=== PATIENT | male | born 1940 | race Caucasian/White ===

== ENCOUNTER 2016-11-27 08:04 | Emergency (ER) | payer OTHER ==
[2016-11-27 08:27] VITALS: BP 132/065
--- NOTE | 2016-11-27 10:10 | PROVIDER DOCUMENTATION ---
HPI-General Adult - General Chief Complaint: Cold Symptoms Stated Complaint: SUTURE/STAPLE REMOVAL/COLD SX Time Seen by Provider: 11/27/16 09:56 Source: patient Allergies/Adverse Reactions: Patient Allergies Allergy/AdvReac Type Severity Reaction Status Date / Time No Known Allergies Allergy Verified 11/27/16 08:27 Home Medications: Hum Insulin NPH/Reg Insulin Hm [Humulin 70-30 Vial] 12/20/13 Amitriptyline [Elavil] 25 mg PO QHS 04/11/14 Amlodipine/Atorvastatin [Amlodipine-Atorvast 10-10 mg] 10 mg PO DAILY 04/11/14 Doxazosin [Cardura] 4 mg PO DAILY 04/11/14 Insulin Humulin 70/30 [Humulin 70/30] 30 units SQ QPM 04/11/14 Insulin Humulin 70/30 [Humulin 70/30] 40 units SQ QAM 04/11/14 Lisinopril/Hydrochlorothiazide [Lisinopril-Hctz 20-25 mg Tab] 1 tab PO DAILY Meloxicam 15 mg PO DAILY 04/11/14 SIMVAstatin [Zocor] 40 mg PO QHS 04/11/14 - History of Present Illness -Gen Adult Nature of Presenting Problems: Seen on 11/20/16 for overdose of insulin had head injury received 3 jose to left parietal pt reports to get them removed today and also complains of cough and sinus congestion x 2 days and wants a prescription for that. Denies n,v,f, blurry vision,headache. Location of Pain/Injury: reports: head Quality of Pain: reports: none Severity: reports: mild Onset/Duration: reports: other (7 days) Similar Symptoms Previously?: No Recently seen or treated by another doctor?: Yes Review of Systems - Adult - REVIEW OF SYSTEMS - ADULT Constitutional: denies: chills, fever, fatique Eyes: reports: no symptoms reported Ears, Nose, Mouth & Throat: reports: sinus problem. denies: ear pain, throat pain Cardiovascular: denies: chest pain, irregular heart rate, orthopnea, syncope Respiratory: reports: cough. denies: shortness of breath, wheezing Gastrointestinal: reports: no symptoms reported Genitourinary: reports: no symptoms reported Musculoskeletal: reports: no symptoms reported Integumentary: reports: no symptoms reported Neurological: reports: no symptoms reported Psychiatric: reports: no symptoms reported Endocrine: reports: no symptoms reported Hematologic/Lymphatic: reports: no symptoms reported Allergic/Immunologic: reports: no symptoms reported All Other Systems: Reviewed and Negative Past History - Adult - PAST MEDICAL HISTORY-ADULT Review of Records: reports: Nursing Assessment Review Major Childhood Illnesses: reports: denies history Cardiovascular: reports: HTN, hyperlipidemia Respiratory: reports: denies history Gastrointestinal: reports: denies history Obstetrical/Gynecological: reports: denies history Genitourinary: reports: denies history Musculoskeletal: reports: denies history Neurological: reports: denies history Psychiatric: reports: depression Endocrine/Immune: reports: Diabetes Other Conditions: reports: denies history - PRIOR SURGERIES/PROCEDURES Surgical/Procedure History: reports: appendectomy, CABG - FAMILY HISTORY Family History: reviewed, not pertinent - SOCIAL HISTORY Smoking: denies Substance Use: none/never Physical Exam-General - PHYSICAL EXAM-ADULT Initial Vital Signs Reviewed: Yes - CONSTITUTIONAL General Appearance: appears well, alert, no apparent distress - EYES Eyes: PERRL/EOMI, pink conjunctivae - HEAD, EARS, NOSE, MOUTH & THROAT HENMT: normocephalic/atraumatic, moist mucous membranes, normal ENT inspection, TMs normal, pharynx normal, other (3 jose to left parietal no signs of infection) - NECK Neck: non-tender, full range of motion, supple, normal inspection - RESPIRATORY Respiratory: chest non-tender, lungs clear, normal breath sounds, no pleuratic chest pain, no respiratory distress, no accessory muscle use - CARDIOVASCULAR Cardiovascular: normal peripheral pulses, regular rate, rhythm, no edema, no gallop, no JVD, no murmur - GASTROINTESTINAL (ABDOMEN) Abdominal Exam: normal bowel sounds, non tender, soft - LYMPHATIC Lymphatic: no adenopathy - MUSCULOSKELETAL Back Exam: normal inspection, no CVA tenderness, no vertebral tenderness Extremity: normal range of motion, non-tender, normal gait - SKIN Integumentary: normal color, normal turgor, warm/dry - NEUROLOGIC Neurologic: grossly normal, no motor/sensory deficits - PSYCHIATRIC Psych/Mental Status: normal mood/affect, normal thought content, normal thought process, oriented x 3 Progress - PLAN OF CARE/RESULTS Progress/Plan/Lab Results: Vital Signs - 24 hr 11/27/16 08:25 Temperature 97.8 F Pulse Rate 79 Respiratory 18 Rate Blood Pressure 132/065 O2 Sat by Pulse 96 Oximetry Nurse removed 3 jose from pt left parietal Departure - Departure Time of Disposition Order: 10:09 DIAGNOSIS: Removal of jose URI (upper respiratory infection) Qualifiers: URI type: unspecified URI Qualified Code(s): J06.9 - Acute upper respiratory infection, unspecified Disposition: HOME 01 Certified Medical Emergency: Emergent Condition: Stable Additional Instructions: ED Follow Up Instructions: You have been treated by a care provider in the Emergency Department. These instructions are being provided to you so you can have an understanding of how to care for yourself upon discharge. Upon discharge from the Emergency Department, you are responsible for making arrangements for follow-up care by a physician of your choice. Take all prescribed medications as directed. Return to the Emergency Department immediately for any new or worsening symptoms. You may call the Physician Referral phone number at [phone] to obtain a list of Physicians who are taking new patients. Attestation - Scribe Verification/Attestation Scribe:: Xavi Hodges Acting as Scribe for:: Farnaz Diaz Scribe documention review:: This chart was documented by a scribe and accurately reflects the service the provider performed and the decisions made by the provider.
[2016-11-27] MEDS ORDERED: XYLOCAINE-MPF 1% INJ ONE (10:16)
[2016-11-27] MEDS ORDERED: ROCEPHIN IM ONE (10:16)
== END 2016-11-27 11:03 | disposition home or self-care (01) ==
LOC: P.ED 08:04
DX: S01.81XD Laceration without foreign body of other part of head, subsequent encounter (principal); J06.9 Acute upper respiratory infection, unspecified; R05 Cough; R09.81 Nasal congestion; I10 Essential (primary) hypertension; E78.5 Hyperlipidemia, unspecified; E11.9 Type 2 diabetes mellitus without complications; F32.9 Major depressive disorder, single episode, unspecified; Z79.82 Long term (current) use of aspirin; Z79.899 Other long term (current) drug therapy; Z95.1 Presence of aortocoronary bypass graft
CPT/HCPCS: 96372; J0696

== ENCOUNTER 2019-04-26 16:55 | Inpatient (IN) ==
[2019-04-26 17:12] LABS: BASO# 0.04 X1000 (0.0-0.2); BASO% 0.3 % (0.0-0.8); EOS# 0.08 X1000 (0.0-0.7); EOS% 0.6 % (0.0-10.0); HEMATOCRIT 32.7 % (42.0-52.0); IMM GRAN# 0.04 X1000 (0.0-0.04); IMM GRAN% 0.3 % (0.0-0.5); LYMPH# 0.91 X1000 (1.2-3.4); LYMPH% 6.8 % (20.5-51.1); MCH 29.8 PG (27-31); MCHC 33.6 g/dL (33-37); MCV 88.6 FL (81-99); MONO# 1.25 X1000 (0.11-0.59); MONO% 9.4 % (1.7-9.3); MPV 9.9 FL (7.4-10.4); NEUT# 11.01 X1000 (1.4-6.5); NEUT% 82.6 % (42.2-75.2); PLT 277 X1000 (130-400); RBC 3.69 XMIL (4.7-6.1); RDW 13.5 % (11.5-14.5); WBC 13.33 X1000 (4.8-10.8)
--- NOTE | 2019-04-26 18:26 | PROVIDER DOCUMENTATION ---
HPI-General Adult - General Chief Complaint: Weakness Stated Complaint: general weakness Time Seen by Provider: 04/26/19 17:56 Source: patient Allergies/Adverse Reactions: Patient Allergies Allergy/AdvReac Type Severity Reaction Status Date / Time No Known Allergies Allergy Verified 05/15/18 11:29 Home Medications: Home Medication List Medication Instructions Recorded Confirmed Last Taken Type Hum Insulin NPH/Reg Insulin Hm 25 units SUBQ BID PRN 12/20/13 05/17/18 05/14/18 History [Humulin 70-30 Vial] Amitriptyline [Elavil] 25 mg PO QHS 04/11/14 05/17/18 05/14/18 History Amlodipine/Atorvastatin 10 mg PO DAILY 04/11/14 05/17/18 05/15/18 History [Amlodipine-Atorvast 10-10 mg] Doxazosin [Cardura] 4 mg PO DAILY 04/11/14 05/17/18 05/15/18 History Meloxicam 15 mg PO DAILY 04/11/14 05/17/18 05/15/18 History Brimonidine 0.2% Ophth Soln 1 drop BOTH EYES TID 05/17/18 05/17/18 Unknown History [Alphagan 0.2% Ophth Soln] Hydrochlorothiazide 25 mg PO DAILY 05/17/18 05/17/18 Unknown History Pravastatin Sodium 40 mg PO HS 05/17/18 05/17/18 Unknown History Tamsulosin [Flomax] 1 cap PO BID 05/17/18 05/17/18 Unknown History Timolol 0.5% Oph Solution 1 drop BOTH EYES BID 05/17/18 05/17/18 Unknown History [Timoptic 0.5% Oph Solution] Travoprost [Travatan Z] 1 drop BOTH EYES HS 05/17/18 05/17/18 Unknown History Valsartan [Diovan] 80 mg PO DAILY tablet 05/20/18 Unknown Rx Sulfamethoxazole/Tmp D.s. [Septra 1 ea PO BID #14 tab 05/21/18 Unknown Rx Ds] Acetaminophen with Codeine 1 ea PO Q8H PRN PRN #30 tab 02/20/19 Unknown Rx [Tylenol with Codeine #3 Tablet] Cephalexin [Keflex] 500 mg PO 4XDAY #30 cap 02/20/19 Unknown Rx - History of Present Illness -Gen Adult Nature of Presenting Problems: Patient is a 79 yowm presenting to the ED today for weakness. He reports he has been in his recliner for the past 4 days. He reports he has been having bowel movements and urinating in the chair because he is unable to walk. He reports that he lives with his 102 year old aunt, who makes him food. HE denies dizziness, CP, N/V/D, SOB, urinary symptoms, cough, fever, headache. He only complains of weakness. Location of Pain/Injury: reports: none, other (weakness) Pain Radiation: reports: no radiation Quality of Pain: reports: none Severity: reports: moderate Onset/Duration: reports: 4 days ago Timing: reports: still present Context/Activities at Onset: reports: none Modifying Factors: improves with: nothing Associated Symptoms: reports: denies symptoms, fatigue, weakness, trouble walking. denies: chest pain, cough, diarrhea, dizziness, genitourinary problems, muscle aches, nausea, seizure, shortness of breath, syncope, vomiting Similar Symptoms Previously?: No Recently seen or treated by another doctor?: No Review of Systems - Adult - REVIEW OF SYSTEMS - ADULT Constitutional: reports: no symptoms reported. denies: chills, fever Eyes: reports: no symptoms reported Ears, Nose, Mouth & Throat: reports: no symptoms reported Cardiovascular: reports: no symptoms reported. denies: chest pain, syncope Respiratory: reports: no symptoms reported. denies: cough, shortness of breath Gastrointestinal: reports: no symptoms reported. denies: abdominal pain, nausea, vomiting Genitourinary: reports: no symptoms reported Musculoskeletal: reports: muscle weakness Integumentary: reports: no symptoms reported Neurological: reports: no symptoms reported. denies: dizziness/vertigo Psychiatric: reports: no symptoms reported Endocrine: reports: no symptoms reported Hematologic/Lymphatic: reports: no symptoms reported Allergic/Immunologic: reports: no symptoms reported All Other Systems: Reviewed and Negative Past History - Adult - PAST MEDICAL HISTORY-ADULT Review of Records: reports: Old Records Reviewed, Nursing Assessment Review, Medications Reviewed Major Childhood Illnesses: reports: denies history Cardiovascular: reports: CAD, HTN, hyperlipidemia Respiratory: reports: denies history Gastrointestinal: reports: GERD Obstetrical/Gynecological: reports: denies history Genitourinary: reports: denies history Musculoskeletal: reports: denies history Neurological: reports: denies history Psychiatric: reports: depression Endocrine/Immune: reports: Diabetes Other Conditions: reports: denies history, cataract/glaucoma - PRIOR SURGERIES/PROCEDURES Surgical/Procedure History: reports: appendectomy, CABG, cholecystectomy, joint replacement (total knee), other (cataract; hemorrhoid) - IMMUNIZATION STATUS Childhood Immunizations: See Nurse Assessment Flu Vaccine: See Nurse Assessment - FAMILY HISTORY Family History: reviewed, not pertinent - SOCIAL HISTORY Smoking: denies Physical Exam-General - PHYSICAL EXAM-ADULT Initial Vital Signs Reviewed: Yes - CONSTITUTIONAL General Appearance: alert, no apparent distress - EYES Eyes: PERRL/EOMI, pink conjunctivae - HEAD, EARS, NOSE, MOUTH & THROAT HENMT: normocephalic/atraumatic, moist mucous membranes - NECK Neck: non-tender, supple - RESPIRATORY Respiratory: chest non-tender, lungs clear, normal breath sounds, no pleuratic chest pain, no respiratory distress, no accessory muscle use - CARDIOVASCULAR Cardiovascular: regular rate, rhythm, no edema, no gallop, no JVD, no murmur - GASTROINTESTINAL (ABDOMEN) Abdominal Exam: normal bowel sounds, non tender, soft - LYMPHATIC Lymphatic: no adenopathy - MUSCULOSKELETAL Back Exam: normal inspection Extremity: normal inspection, no pedal edema - SKIN Integumentary: normal color, normal turgor, warm/dry - NEUROLOGIC Neurologic: grossly normal - PSYCHIATRIC Psych/Mental Status: normal mood/affect, normal thought content, normal thought process, oriented x 3 Progress - PLAN OF CARE/RESULTS Progress/Plan/Lab Results: Vital Signs - 8 hr 04/26/19 16:32 Temperature 99.3 F Pulse Rate 118 H Respiratory Rate 20 Blood Pressure 153/58 O2 Sat by Pulse Oximetry 98 Laboratory Results - last 24 hr 04/26/19 04/26/19 17:01 17:01 WBC 13.33 H RBC 3.69 L Hgb 11.0 L Hct 32.7 L MCV 88.6 MCH 29.8 MCHC 33.6 RDW Std Deviation 13.5 Plt Count 277 MPV 9.9 Immature Gran % (Auto) 0.3 Neut % (Auto) 82.6 H Lymph % (Auto) 6.8 L Hockley % (Auto) 9.4 H Eos % (Auto) 0.6 Baso % (Auto) 0.3 Immature Gran # (Auto) 0.04 Neut # (Auto) 11.01 H Lymph # (Auto) 0.91 L Hockley # (Auto) 1.25 H Eos # (Auto) 0.08 Baso # (Auto) 0.04 Troponin T 0.017 Orders Category Date Time Status [facility] Cath Insertion ORDERED Care 04/26/19 16:50 Active Nursing- Obtain EKG ONCE Care 04/26/19 16:46 Active CHEST-PORTABLE [RAD] Stat Exams 04/26/19 16:46 Ordered BLOOD CULTURE [BLDCUL] Stat Lab 04/26/19 17:04 Ordered CBC WITH DIFF [HEME] Stat Lab 04/26/19 17:01 Completed CK PROFILE [SP CHEM] Stat Lab 04/26/19 17:01 Received COMPREHENSIVE METABOLIC PANEL [CHEM] Stat Lab 04/26/19 17:04 Ordered LACTATE, PLASMA [CHEM] Stat Lab 04/26/19 17:04 Ordered MAGNESIUM [CHEM] Stat Lab 04/26/19 17:04 Ordered PROTIME WITH INR [COAG] Stat Lab 04/26/19 17:04 Ordered TROPONIN T Stat Lab 04/26/19 17:[address] W/POSS RFLX CULT [URINALYSIS] Stat Lab 04/26/19 16:50 Uncollected EKG [EKG] Stat Ther 04/26/19 16:46 Ordered Discussed plan of care with patient, he agrees with plan of care and denies any questions at this time. 20:00- Discussed plan of care with Dr. Ward. He agrees with plan of care and has no further recommendations. 20:15- discussed admission with Dr. Rocha, he recommended q4h neuro checks, head CT, and IV fluids. Admitting patient at this time. 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 There are several stable old rib fractures. The lungs are grossly clear. There is no discrete pleural fluid collection or pneumothorax. There are stable CABG changes. The cardiomediastinal silhouette and central vasculature are grossly unremarkable, otherwise. IMPRESSION: Stable chest with no definite acute pathology by plain radiograph. Electronically signed by Alec Alonzo 04/26/2019 8:20 PM 04/26/192019 Interpreting Physician: Alec Alonzo MD Dictated Date/Time: 04/26/192016 cc: Edil Dodd MD; None,PCP) - CONSULTS/PCP/HOSPITALIST Notification #1 *Consult/PCP/Hospitalist*: Dr. Rocha Time Discussed: 20:15 Reason/Comments: Admit for weakness Consult Disposition: Admit Departure - Departure Date of Disposition Decision: 04/26/19 Time of Disposition Decision: 20:31 DIAGNOSIS: Weakness Disposition: ADMITTED INPATIENT 09 Certified Medical Emergency: Emergent Condition: Stable Referrals and Follow-Ups: None,PCP [Primary Care Provider] - - Critical Care Note This patient required my direct & personal management of CC.: No Attestation - Physician/ NOEMY Attestation Patient care was provided by Advanced Practice Provider:: Yes Advanced Practice Provider:: Priscilla Ramirez Advanced Practice Provider documentation review:: The Mid-level provider documentation, treatment plan and medical decision making was reviewed by the physician who agrees with all treatment and medical decision making by the MLP. The physician spent face to face time with patient:: No Advanced Practice Provider documentation review:: Supervising physician onsite and consulted in the evaluation and care of this patient. The physician did not have a face to face encounter with the patient.
[2019-04-26 19:23] LABS: BILIRUBIN URINE NEGATIVE (NEGATIVE); BLOOD URINE TRACE (NEGATIVE); GLUCOSE URINE NEGATIVE (NEGATIVE); KETONE URINE TRACE mg/dL (NEGATIVE); LEUKOCYTES URINE TRACE (NEGATIVE); NITRITE URINE NEGATIVE (NEGATIVE); PROTEIN URINE TRACE mg/dL (NEGATIVE); SP GRAVITY URINE 1.015; UROBILINOGEN URINE 1 mg/dL
[2019-04-26 19:24] LABS: CLARITY CLEAR (CLEAR); COLOR YELLOW
[2019-04-26 19:33] LABS: URINE RBC <10 /HPF (<10); URINE WBC <10 /HPF (<10)
[2019-04-26 19:34] LABS: URINE BACTERIA 1+ /HFP; URINE CAST NONE SEEN /LPF; URINE CRYSTAL NONE SEEN /HPF; URINE EPITHELIAL CELLS <10 /HPF (<10); URINE SOURCE CATH; URINE YEAST NONE SEEN /HPF
[2019-04-26 19:49] LABS: AGAP 14; ALBUMIN 3.4 g/dL (3.5-5.0); ALKALINE PHOSPHATASE 102 U/L (32-122); BUN 18 mg/dL (8-22); CALCIUM 8.7 mg/dL (8.8-10.2); CHLORIDE 94 mmol/L (98-107); COSMO 268; CREATININE 0.7 mg/dL (0.7-1.2); ESTIMATED GFR > 60; GLUCOSE 192 mg/dL (70-104); GOT 23 U/L (10-34); GPT 11 U/L (10-44); MAGNESIUM 1.9 mg/dL (1.5-2.7); POTASSIUM 4.2 mmol/L (3.5-5.1); SODIUM 130 mmol/L (136-145); TCO2 22 mmol/L (25-35); TOTAL PROTEIN 5.9 g/dL (6.3-8.3)
[2019-04-26 19:56] LABS: INR 1.18; PROTIME 15.6 Seconds (11.0-16.0)
--- NOTE | 2019-04-26 20:13 | EKG Report ---
Test Performed on : 04/26/2019 5:45:36 PM Test Reason : WEAKNESS Blood Pressure : / mmHG Vent. Rate : 113 BPM Atrial Rate : 113 BPM P-R Int : 132 ms QRS Dur : 074 ms QT Int : 340 ms P-R-T Axes : 075 -58 233 degrees QTc Int : 466 ms Sinus tachycardia. with frequent premature ventricular complexes. Left axis deviation Nonspecific ST and T wave abnormality Abnormal ECG When compared with ECG of 17-MAY-2018 09:54, premature supraventricular complexes. are no longer present Criteria for Inferior infarct are no longer present Nonspecific T wave abnormality now evident in Inferior leads Unconfirmed Result
[2019-04-26] MEDS ORDERED: NS 1,000 ML IV ONE ×2 (20:20→20:46)
--- NOTE | 2019-04-26 20:22 | Diag Imaging Result Doc PS360 ---
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 There are several stable old rib fractures. The lungs are grossly clear. There is no discrete pleural fluid collection or pneumothorax. There are stable CABG changes. The cardiomediastinal silhouette and central vasculature are grossly unremarkable, otherwise. IMPRESSION: Stable chest with no definite acute pathology by plain radiograph. Electronically signed by Alec Alonzo 04/26/2019 8:20 PM
[2019-04-26 20:56] LABS: UR AMPHETAMINES QUAL NONE DETECTED (NONE DETECT); UR BARBITUATES QUAL NONE DETECTED (NONE DETECT); UR BENZODIAZEPIN QUAL NONE DETECTED (NONE DETECT); UR CANNABINOIDS QUAL NONE DETECTED (NONE DETECT); UR COCAINE QUAL NONE DETECTED (NONE DETECT); UR METHADONE QUAL NONE DETECTED (NONE DETECT); UR METHAMPHETAMINE QUAL NONE DETECTED (NONE DETECT); UR OPIATES QUAL PRESUMPTIVE POSITIVE (NONE DETECT); UR OXYCODONE QUAL NONE DETECTED (NONE DETECT); UR PCP QUAL NONE DETECTED (NONE DETECT); UR PROPOXYPHENE QUAL NONE DETECTED (NONE DETECT); UR TCA QUAL PRESUMPTIVE POSITIVE (NONE DETECT)
--- NOTE | 2019-04-26 21:07 | Diag Imaging Result Doc PS360 ---
EXAM: CT HEAD W/O CONTRAST INDICATION: AMS TECHNIQUE: This exam was performed using automated exposure control, adjustment of mA or kV according to patient size, and/or use of iterative reconstruction technique. COMPARISON: 05/15/2018 FINDINGS: There is stable mild diffuse brain atrophy. There is mild patchy subcortical low-attenuation, especially in the subinsular region on the left that is stable suggesting minimal white matter microangiopathy. There is no definite acute infarct given the limited sensitivity of CT versus MRI. There is no discrete intracranial mass, mass effect, or intracranial hemorrhage. The surrounding soft tissues and bony structures are essentially unremarkable. IMPRESSION: Stable mild chronic changes but no definite acute intracranial pathology by CT. Electronically signed by Alec Alonzo 04/26/2019 9:05 PM
[2019-04-27 01:44] LABS: BASO# 0.05 X1000 (0.0-0.2); BASO% 0.5 % (0.0-0.8); EOS# 0.26 X1000 (0.0-0.7); EOS% 2.5 % (0.0-10.0); HEMATOCRIT 27.4 % (42.0-52.0); HEMOGLOBIN 9.5 g/dL (14.0-18.0); IMM GRAN# 0.02 X1000 (0.0-0.04); IMM GRAN% 0.2 % (0.0-0.5); LYMPH# 0.82 X1000 (1.2-3.4); LYMPH% 7.8 % (20.5-51.1); MCH 30.5 PG (27-31); MCHC 34.7 g/dL (33-37); MCV 88.1 FL (81-99); MONO# 1.18 X1000 (0.11-0.59); MONO% 11.2 % (1.7-9.3); MPV 9.6 FL (7.4-10.4); NEUT# 8.18 X1000 (1.4-6.5); NEUT% 77.8 % (42.2-75.2); PLT 241 X1000 (130-400); RBC 3.11 XMIL (4.7-6.1); RDW 12.9 % (11.5-14.5); WBC 10.51 X1000 (4.8-10.8)
[2019-04-27 01:57] LABS: INR 1.21; PROTIME 15.9 Seconds (11.0-16.0)
[2019-04-27 01:58] LABS: PTT 45.8 Seconds (22.3-41.8)
[2019-04-27 02:53] LABS: AGAP 12; ALBUMIN 3.2 g/dL (3.5-5.0); ALKALINE PHOSPHATASE 96 U/L (32-122); BUN 15 mg/dL (8-22); CALCIUM 8.7 mg/dL (8.8-10.2); CHLORIDE 96 mmol/L (98-107); CK PROFILE 239 U/L (24-204); COSMO 267; CREATININE 0.6 mg/dL (0.7-1.2); ESTIMATED GFR > 60; GLUCOSE 168 mg/dL (70-104); GOT 26 U/L (10-34); GPT 12 U/L (10-44); POTASSIUM 3.8 mmol/L (3.5-5.1); SODIUM 131 mmol/L (136-145); TCO2 23 mmol/L (25-35)
[2019-04-27 03:07] LABS: CK INDEX 2.4 (0.0-2.5); CK-MB 5.85 ng/mL (0.0-5.0)
[2019-04-27] MEDS ORDERED: ATORVASTATIN PO SCH (09:00)
[2019-04-27] MEDS ORDERED: AMLODIPINE PO SCH (09:00)
--- NOTE | 2019-04-27 09:25 | HISTORY AND PHYSICAL ---
PRIMARY CARE PHYSICIAN: Dr. Dias. CHIEF COMPLAINT: Generalized weakness. He states he has been in his recliner for the past 4 days due to being unable to walk. HISTORY OF PRESENT ILLNESS: This is an 79-year-old male who presents to [facility] ER with complaints of generalized weakness. He states that for the past 4 days he has been sitting in his recliner, unable to get up and walk. He has had incontinence of urine and bowel. He is usually able to walk with a walker but states when he would attempt to stand up, his legs were weak and he was shaking all over. He normally cares for his [id number] aunt. On arrival to the emergency room, he was noted to have a sodium of 130 and chloride was 94. White blood cell count was 13.33. Urinalysis was negative except for 1+ bacteria. Urine drug screen was presumptive positive for opiates and tricyclics. We will need to verify if he has a prescription for opiates. He will be admitted for further evaluation and treatment. PAST MEDICAL HISTORY: Coronary artery disease, hypertension, hyperlipidemia, GERD, diabetes, and cataracts for which he is legally blind. PAST SURGICAL HISTORY: Appendectomy, cholecystectomy, CABG, total knee, hemorrhoidectomy and cataracts. FAMILY HISTORY: Reviewed and noncontributory. SOCIAL HISTORY: Currently lives with family, and as I stated earlier he is caring for his 101- year-old aunt. Denied any tobacco, alcohol or illicit drug use. ALLERGIES: He has no known drug allergies. HOME MEDICATIONS: We will need to verify his Humulin 70/30. We will continue his Elavil 25 mg p.o. at bedtime, amlodipine/atorvastatin 10 mg p.o. daily, Alphagan 1 drop t.i.d., Santyl ointment topically daily, Cardura 4 mg p.o. daily, hydrochlorothiazide 25 mg p.o. daily, pravastatin 40 mg p.o. at bedtime, and tamsulosin 0.4 mg p.o. at bedtime. Again, we need to verify if the patient has an active prescription for opiates since his drug screen was positive for opiates. LABORATORY DATA: A white blood cell count of 13.33, hemoglobin 11, hematocrit 37.2, and platelets of 277,000. PT and INR of 15.6 and 1.18. Sodium 130, potassium 4.2, chloride 94, CO2 22, BUN of 18, creatinine 0.7, and glucose 192. Magnesium 1.9. Cardiac enzymes were negative. Urinalysis was negative except for trace white blood cells and 1+ bacteria. Urine drug screen was presumptive positive for opiates and tricyclics. Chest x-ray showed a stable chest with no definite acute pathology by plain radiograph. EKG showed sinus tachycardia with frequent PVCs at 113. CT of the head showed stable mild chronic changes but no definite acute intracranial pathology by CT. REVIEW OF SYSTEMS: He denied any fever, chills, blurred vision, or dizziness. He is noted to be legally blind from his cataracts, though he denied any chest pain, coughing, or shortness of breath. Denied any abdominal pain, constipation, diarrhea, burning or hurting with urination. States that he felt weak in his bilateral lower extremities and would shake when he would try to stand up and walk with his walker so he spent the last 4 days sitting in his recliner. PHYSICAL EXAMINATION: VITAL SIGNS: On arrival, he had a temperature of 99.3 degrees, pulse of 118, respirations 20, blood pressure 153/58 and saturating 98% on room air. GENERAL: This is an 79-year-old male who is lying in the bed and answers questions appropriately. HEENT: Normocephalic, atraumatic. Normal ENT inspection. Oropharynx and nares are clear. Eyes: He has cataracts and is legally blind. Extraocular movements are intact. NECK: Normal inspection. Normal range of motion. LUNGS: Clear to auscultation bilaterally with equal lung expansion and chest wall movement. HEART: Regular rate and rhythm. No murmurs, rubs, or gallops. ABDOMEN: Soft, nontender, and nondistended. Bowel sounds are present x4 quadrants. MUSCULOSKELETAL: He is noted to have 5/5 strength to his upper extremities, 3/5 strength to his lower extremities. NEUROLOGICAL: The cranial nerves 2-12 appear grossly intact. ASSESSMENT: 1. Generalized weakness. 2. Leukocytosis, most likely reactive. 3. Hyponatremia. 4. Diabetes type 2. PLAN: He was admitted to the medical unit, placed on neuro checks q.4h x24 hours. Telemetry. Diabetic diet. We will consult physical therapy to evaluate and treat. Urine culture and blood cultures are pending. He is on normal saline at 125 mL an hour. Continue home medications as previously identified. I will get nursing to update and confirm home medication to see if he is on an opiate, and will continue that if we can verify that he is on one. We will recheck a CBC and BMP in the morning. The patient certainly may need some rehab on discharge so, we will consult [facility] to follow up with his discharge planning. Further orders after seen by attending. Dictated by CHRISTIAN Orta for Demond Vega MD Addendum: Patient seen and examined by myself. Agree with CHRISTIAN note. It reflects my assessment and plan. Patient is being admitted to hospital for generalized weakness. He denies any cough or burning on urination. He had some lesions that appear like a decubitus ulcers right lower extremity so I do not think the complaint of not being able to walk is really new or from few days. Will consult General Surgery to see if those needs to be debrided or not. cc: CHRISTIAN Orta MD Gregory S. Cheatham, MD [facility] [place] DIVISIONPhilip
[2019-04-27] MEDS: ALPHAGAN 0.2% OPHTH SOLN BOTH EYES SCH ×3 (09:52→17:00)
[2019-04-27] MEDS: CARDURA PO SCH (09:53)
[2019-04-27] MEDS: SANTYL OINT TOP SCH (09:53)
[2019-04-27] MEDS: HYDROCHLOROTHIAZIDE PO SCH (09:53)
[2019-04-27] MEDS: DIFLUCAN PO SCH (11:25)
[2019-04-27] MEDS: NORVASC PO SCH (11:25)
--- NOTE | 2019-04-27 20:47 | GENERAL SURGERY CONSULTATION ---
DATE: 04/27/2019 HISTORY OF PRESENT ILLNESS: Mr. Clifford is an unfortunate 79-year-old gentleman who has become so weak he could not get out of his recliner. He is admitted. He is found to be incontinent of bowel and urine. He is noticed to have a shallow ulcerations of his sacrum and deeper ulceration of his left heel. He says the ulceration on his heals been there about 6 weeks. His other medical problems include coronary disease, hypertension, hyperlipidemia, gastroesophageal reflux, diabetes, and cataract. He has had an appendectomy, cholecystectomy, coronary artery bypass, knee arthroplasty, hemorrhoidectomy and cataract surgery. FAMILY HISTORY: Noncontributory. SOCIAL HISTORY: Says he lives with his family, but he anticipates going to a group home. He denies tobacco, alcohol or drug use. MEDICATIONS: Listed. ALLERGIES: He has no known drug allergies. PHYSICAL EXAMINATION: Vital signs: He is afebrile. Heart rate 51, blood pressure 152/55. He is quite disheveled appearing. Lungs: Bilateral breath sounds. Heart: Regular rate and rhythm. Abdomen: Soft. Skin: He has an unstageable ulcer on the back. It seems to be shallow. He has lots of venous stasis changes of his legs. Scar on his left leg consistent with the vein harvest. A left plantar heel ulcer with eschar is somewhat spongy. LABORATORY DATA: White count 10,500, hemoglobin 9.5. ASSESSMENT: 1. Left heel decubitus. This will need debridement. 2. Sacral decubitus. I do not think this is deep enough to require excisional debridement at this time. I will plan to proceed with the heel debridement on the if we can get in the operating room. I discussed this with him. He agrees. cc: MD Demond Gooden MD
[2019-04-27] MEDS ORDERED: FLOMAX PO SCH (21:00)
[2019-04-27] MEDS ORDERED: PRAVACHOL PO SCH (21:00)
[2019-04-27] MEDS ORDERED: ELAVIL PO SCH (21:00)
[2019-04-28 09:11] LABS: BASO# 0.03 X1000 (0.0-0.2); BASO% 0.4 % (0.0-0.8); EOS# 0.26 X1000 (0.0-0.7); EOS% 3.2 % (0.0-10.0); HEMATOCRIT 27.2 % (42.0-52.0); HEMOGLOBIN 9.1 g/dL (14.0-18.0); IMM GRAN# 0.01 X1000 (0.0-0.04); IMM GRAN% 0.1 % (0.0-0.5); LYMPH% 16.1 % (20.5-51.1); MCH 29.5 PG (27-31); MCHC 33.5 g/dL (33-37); MCV 88.3 FL (81-99); MONO# 0.89 X1000 (0.11-0.59); MPV 9.5 FL (7.4-10.4); NEUT# 5.58 X1000 (1.4-6.5); NEUT% 69.2 % (42.2-75.2); PLT 267 X1000 (130-400); RBC 3.08 XMIL (4.7-6.1); RDW 12.8 % (11.5-14.5); WBC 8.07 X1000 (4.8-10.8)
[2019-04-28 09:16] LABS: AGAP 9; BUN 7 mg/dL (8-22); CALCIUM 8.4 mg/dL (8.8-10.2); CHLORIDE 95 mmol/L (98-107); COSMO 263; CREATININE 0.4 mg/dL (0.7-1.2); ESTIMATED GFR > 60; GLUCOSE 139 mg/dL (70-104); SODIUM 131 mmol/L (136-145); TCO2 27 mmol/L (25-35)
[2019-04-28] MEDS: SANTYL OINT TOP SCH (09:40)
[2019-04-28] MEDS: HYDROCHLOROTHIAZIDE PO SCH (09:40)
[2019-04-28] MEDS: DIFLUCAN PO SCH (09:40)
[2019-04-28] MEDS: CARDURA PO SCH (09:40)
[2019-04-28] MEDS: ALPHAGAN 0.2% OPHTH SOLN BOTH EYES SCH ×2 (09:40→18:22)
[2019-04-28] MEDS: NORVASC PO SCH (09:40)
--- NOTE | 2019-04-28 11:45 | PROGRESS NOTE ---
DATE: 04/28/2019 SUBJECTIVE: Patient reports feeling fine. He actually reports that he has been not able to walk around for a few weeks, probably 2 to 3 months, which is completely different to the history that was done by ER doctor that this patient was completely fine and on also able to walk around until 4 days go when he started feeling weak. In any case, he denies any other complaints. OBJECTIVE: Vital Signs: Temperature 97.4 degrees, heart rate 97, respiratory rate 20, blood pressure 131/48, O2 saturation 92% on room air. General: This is an 79-year-old male, lying in bed, in no acute distress. Cardiovascular: S1, S2 heard. No murmurs, gallops, or rubs. Regular rate and rhythm. Respiratory: Clear bilaterally to auscultation. No work of breathing or using accessory muscles. Abdomen: Soft. Nontender to palpation. Bowel sounds present. No organomegaly. Extremities: There is a left plantar heel ulcer with eschar. He has a small ulcer at the back too. ASSESSMENT: 1. General weakness. 2. Hyponatremia. 3. Left heel decubitus ulcer. 4. Sacral ulcer. 5. Hyponatremia. 6. Diabetes mellitus type 2. PLAN: At this point, the patient has been evaluated by Dr. Gong, who considered this patient needs to have this left heel ulcer debridement. The sacral ulcer does not need to be debrided. Definitely, this patient has been very weak for many weeks. We will continue with IV fluids. The sodium is still a little bit low but normal renal function. At this point, after procedures are done by General Surgery, I think this patient needs to go to rehab facility. market research worker has been notified. We will continue to monitor this patient closely. cc: Demond Vega MD
[2019-04-28] MEDS ORDERED: DIPRIVAN 1% ONE (15:40)
[2019-04-28] MEDS ORDERED: KEFZOL 1 GM/D5W 1 GM/50 ML IVPB ONE (16:03)
[2019-04-28] MEDS ORDERED: XYLOCAINE-MPF 2% ONE (16:50)
[2019-04-28] MEDS ORDERED: NORCO-5 ONE (17:25)
--- NOTE | 2019-04-28 20:15 | OPERATIVE NOTE ---
PROCEDURE DATE: 04/28/2019 NAME OF PROCEDURE: Excision and debridement of skin and soft tissue, left heel ulcer, 4 x 4 cm. SURGEON: Watson Gong MD. STREETCAR REPAIRER HELPER: Zulema. PREOPERATIVE DIAGNOSIS: Left heel ischemic ulcer. POSTOPERATIVE DIAGNOSIS: Left heel ischemic ulcer. DESCRIPTION OF PROCEDURE: Satisfactory general anesthesia was achieved. The left foot was prepped and draped in a sterile fashion. The ulceration with eschar measured 4 x 4 cm. We excised the eschar all the way down to viable subcutaneous tissue circumferentially. It measured 4 x 4 cm. Satisfactory hemostasis was achieved. We irrigated and then applied DuoDerm to keep the wound moist, followed by a sterile Kerlix. He tolerated it well and was sent to the recovery room in satisfactory condition. cc: Watson Gong MD
[2019-04-28] MEDS: PRAVACHOL PO SCH (21:15)
[2019-04-28] MEDS: ELAVIL PO SCH (21:15)
[2019-04-28] MEDS: FLOMAX PO SCH (21:15)
[2019-04-29] MEDS ORDERED: CARDURA PO SCH (09:00)
[2019-04-29] MEDS: NORVASC PO SCH (09:50)
[2019-04-29] MEDS: DIFLUCAN PO SCH (09:50)
[2019-04-29] MEDS: HYDROCHLOROTHIAZIDE PO SCH (09:50)
[2019-04-29] MEDS: SANTYL OINT TOP SCH (10:03)
[2019-04-29] MEDS: ALPHAGAN 0.2% OPHTH SOLN BOTH EYES SCH ×3 (10:04→21:17)
--- NOTE | 2019-04-29 10:36 | GENERAL SURGERY PROGRESS NOTE ---
DATE: 04/29/2019 He is postop day 1 after debridement of his left heel. We will remove the DuoDERM and start using Vashe cleansing and Santyl on his heel. I would be glad to see him in follow up in the [facility]. cc: Watson Gong MD
--- NOTE | 2019-04-29 13:25 | PROGRESS NOTE ---
DATE: 04/29/2019 SUBJECTIVE: Mr. Clifford says that he is feeling a little better. He was under the impression he was going to go to a rehab spot in [place] today. He is a patient of Dr. Dias, and was admitted on 04/26/2019, came in with generalized weakness for about 4 days, unable to walk. He is an 79-year-old male who presented to [place] complaining of general weakness, states that for the past 4 days he has been sitting in a recliner, unable to get up and walk. He has had incontinence of urine and bowel. He is usually able to walk with a walker, states he would attempt to stand up, but his legs were weak, with shaking all over. 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 On arrival to the emergency room he was noted to have a sodium of 130, chloride 94, and a white blood cell count of 13,330. Urinalysis was negative except for 1+ bacteria. Urine drug screen was presumptive positive for opiates and tricyclics. PAST MEDICAL HISTORY: 1. Coronary artery disease. 2. Hypertension. 3. Hyperlipidemia. 4. Gastroesophageal reflux disease. 5. Diabetes mellitus. 6. Cataracts. He is legally blind. SURGICAL HISTORY: 1. Status post appendectomy. 2. Cholecystectomy. 3. Coronary artery bypass graft bypass surgery. 4. Total knee arthroplasty. 5. Hemorrhoidectomy. 6. Cataract surgery. OBJECTIVE: Vitals: Today, he is afebrile, temperature 97.6 degrees, pulse 32, respirations 20, blood pressure 122/56. HEENT: Pupils are equal and round. Lungs: Clear in all lung freeman. Cardiovascular: Regular rhythm and rate without murmur or S3. URINE OUTPUT: 3900 mL. ASSESSMENT AND PLAN: 1. He had debridement of his left heel DuoDERM using topical Santyl and Vashe cleansing system. 2. Generalized weakness. Needs to pursue physical therapy. 3. Hyponatremia. He was given some fluids and sodium 131 yesterday, about close to what it was, so mild hyponatremia. The rest of the electrolytes look good. REVIEW OF ORDERS: He is on Elavil 25 mg at bedtime. He is on Flomax 0.4 mg at bedtime, Norvasc 10 mg a day, brimonidine 0.2% ophthalmic solution to both eyes 3 times a day, Cardura 4 mg a day, Diflucan 100 mg daily, cefazolin 1 g IV q.8 hours, and Pravachol 40 mg at bedtime. Social Service is looking for placement for rehab. He would like to go to [place]. I think he has to qualify for Medicaid in [place]. cc: Leander Maurer MD
[2019-04-29] MEDS: KEFZOL 1 GM/D5W 1 GM/50 ML IVPB IV SCH ×2 (14:13→21:17)
[2019-04-29] MEDS: ELAVIL PO SCH (21:18)
[2019-04-29] MEDS: FLOMAX PO SCH (21:18)
[2019-04-29] MEDS: PRAVACHOL PO SCH (21:18)
[2019-04-30] MEDS: KEFZOL 1 GM/D5W 1 GM/50 ML IVPB IV SCH ×3 (05:08→22:36)
--- NOTE | 2019-04-30 08:40 | PROGRESS NOTE ---
DATE: 04/30/2019 SUBJECTIVE: Mr. Clifford is resting comfortably, sleeping comfortably. No trouble breathing. Easy to arouse. OBJECTIVE: Vital signs: Temperature 98.2 degrees, pulse 89, respirations 20, blood pressure 123/49. HEENT: Pupils are equal and round. Neck: No distended neck veins. Lungs: Clear in all lung freeman. Cardiovascular: Regular rhythm and rate without murmur or S3. Urine output was 1600 mL. ASSESSMENT AND PLAN: 1. Debridement of his left heel and continue topical treatment with DuoDerm, topical Santyl and Vashe cleansing system. 2. Generalized weakness. Continue physical therapy. 3. Hyponatremia. Chemistries from the 6th, sodium at 131, potassium 4.0, chloride 95. HISTORY: This is an 79-year-old who presented to [facility] with generalized weakness for about 4 days, had been sitting in his recliner. He has had incontinence of urine and bowel, had trouble with leg weakness, could not get up and walk. PAST MEDICAL HISTORY: 1. Coronary artery disease. 2. Hypertension. 3. Hyperlipidemia. 4. Gastroesophageal reflux disease. 5. Diabetes mellitus. 6. He has had cataracts, he is legally blind, PAST SURGICAL HISTORY: Status post appendectomy, cholecystectomy, CABG, total knee, hemorrhoidectomy and cataracts. PLAN: We will continue his present orders. He is hoping to go to rehab in [place]. cc: Leander Maurer MD
[2019-04-30] MEDS: ALPHAGAN 0.2% OPHTH SOLN BOTH EYES SCH ×3 (09:56→18:55)
[2019-04-30] MEDS: CARDURA PO SCH (09:56)
[2019-04-30] MEDS: DIFLUCAN PO SCH (09:56)
[2019-04-30] MEDS: HYDROCHLOROTHIAZIDE PO SCH (09:56)
[2019-04-30] MEDS: NORVASC PO SCH (09:56)
[2019-04-30] MEDS: SANTYL OINT TOP SCH (09:57)
[2019-04-30] MEDS: FLOMAX PO SCH (22:37)
[2019-04-30] MEDS: ELAVIL PO SCH (22:37)
[2019-04-30] MEDS: PRAVACHOL PO SCH (22:39)
[2019-05-01] MEDS: KEFZOL 1 GM/D5W 1 GM/50 ML IVPB IV SCH ×3 (05:04→21:42)
[2019-05-01] MEDS: ALPHAGAN 0.2% OPHTH SOLN BOTH EYES SCH ×3 (09:07→18:53)
[2019-05-01] MEDS: HYDROCHLOROTHIAZIDE PO SCH (09:07)
[2019-05-01] MEDS: NORVASC PO SCH (09:07)
[2019-05-01] MEDS: DIFLUCAN PO SCH (09:08)
[2019-05-01] MEDS: CARDURA PO SCH (09:08)
--- NOTE | 2019-05-01 13:14 | PROGRESS NOTE ---
DATE: 05/01/2019 SUBJECTIVE: Mr. Clifford had a good night's sleep. He says he feels good. Breathing is comfortable. No complaints except for general weakness. OBJECTIVE: Temperature is 97.9 degrees, pulse 86, respirations 16, blood pressure 126/45. Pupils are equal and round. Lungs are clear in all lung freeman. Cardiovascular: Regular rhythm and rate without murmur or S3. Abdomen is soft. Skin is warm and dry. No pedal edema. Urine output: 4200 mL. ASSESSMENT AND PLAN: 1. Coronary artery disease. Aware. 2. Hypertension. 3. Hyperlipidemia. 4. Gastroesophageal reflux. 5. Diabetes mellitus, type 2. Sugar is under good control. 6. He has cataracts. I guess he is legally blind. 7. Debridement of his left heel. Seems to be healing well. Continue his physical therapy. Waiting on rehabilitation placement . I think he wants to go to [place]. He is on Elavil 25 mg at bedtime, Flomax 0.4 mg at bedtime for benign prostatic hypertrophy, he is on Norvasc 10 mg a day, Cardura 4 mg a day, Diflucan 100 mg a day, hydrochlorothiazide 25 mg a day, Pravachol 40 mg daily. cc: Leander Maurer MD MTDD
[2019-05-01] MEDS ORDERED: BLISTEX MEDICATED BERRY LIP BALM TOP PRN (15:07)
[2019-05-01] MEDS: SANTYL OINT TOP SCH (16:30)
[2019-05-01] MEDS: ELAVIL PO SCH (21:42)
[2019-05-01] MEDS: PRAVACHOL PO SCH (21:42)
[2019-05-01] MEDS: FLOMAX PO SCH (21:42)
[2019-05-02] MEDS: KEFZOL 1 GM/D5W 1 GM/50 ML IVPB IV SCH ×3 (06:00→23:04)
[2019-05-02] MEDS: HYDROCHLOROTHIAZIDE PO SCH (09:39)
[2019-05-02] MEDS: CARDURA PO SCH (09:39)
[2019-05-02] MEDS: ALPHAGAN 0.2% OPHTH SOLN BOTH EYES SCH ×3 (09:39→17:56)
[2019-05-02] MEDS: DIFLUCAN PO SCH (09:39)
[2019-05-02] MEDS: NORVASC PO SCH (09:40)
[2019-05-02] MEDS: SANTYL OINT TOP SCH (09:40)
--- NOTE | 2019-05-02 14:25 | GENERAL SURGERY PROGRESS NOTE ---
DATE: 05/02/2019 Mr. Clifford's sacrum looks the same. It has a shallow eschar present. The left heel is a debrided wound and he continued to have Santyl on it. The right heel just simply has a shallow blister. We will continue with the current therapy. cc: Watson Gong MD
[2019-05-02] MEDS ORDERED: TYLENOL PO PRN (16:55)
--- NOTE | 2019-05-02 17:34 | PROGRESS NOTE ---
DATE: 05/02/2019 SUBJECTIVE: Mr. Clifford was comfortable, no complaints. He is breathing comfortably. He remains afebrile. He is waiting on a rehab place in [place]. OBJECTIVE: Vital signs: Temperature 97.7 degrees, pulse 90, respirations 16, blood pressure 122/58. HEENT: Pupils are equal and round. Lungs: Clear in all lung freeman. Cardiovascular: Regular rhythm and rate without murmur or S3. Urine output is 3,800 mL. ASSESSMENT AND PLAN: 1. His sacrum and sacral skin has a shallow eschar present. The left heel was debrided. Right heel with a shallow blister and seems to be improving. Continue current therapy. Dr. Gong has evaluated. 2. Coronary artery disease. No sign of active ischemia. 3. Hypertension. 4. Hyperlipidemia. 5. Gastroesophageal reflux disease. 6. Diabetes mellitus type 2. Sugar is under good control. 7. History of cataracts. He is legally blind. 8. Nutrition appears to be doing better. P.o. intake looks good. REVIEW OF ORDERS: On Elavil 25 mg at bedtime, Flomax 0.4 mg at bedtime, Norvasc 10 mg daily, Cardura 4 mg daily, Diflucan 100 mg daily, hydrochlorothiazide 25 mg daily, Pravachol 40 mg at bedtime, and getting cefazolin 1 g IV q.8 hours. cc: Leander Maurer MD
[2019-05-02] MEDS: FLOMAX PO SCH (23:04)
[2019-05-02] MEDS: ELAVIL PO SCH (23:04)
[2019-05-02] MEDS: PRAVACHOL PO SCH (23:04)
[2019-05-03] MEDS: KEFZOL 1 GM/D5W 1 GM/50 ML IVPB IV SCH ×2 (06:06→13:51)
[2019-05-03 06:11] LABS: HEMATOCRIT 31.3 % (42.0-52.0); HEMOGLOBIN 10.6 g/dL (14.0-18.0); MCH 30.1 PG (27-31); MCHC 33.9 g/dL (33-37); MCV 88.9 FL (81-99); MPV 8.9 FL (7.4-10.4); RBC 3.52 XMIL (4.7-6.1); RDW 12.9 % (11.5-14.5); WBC 9.39 X1000 (4.8-10.8)
[2019-05-03 06:31] LABS: AGAP 10; BUN 7 mg/dL (8-22); CALCIUM 9.2 mg/dL (8.8-10.2); CHLORIDE 91 mmol/L (98-107); COSMO 258; CREATININE 0.5 mg/dL (0.7-1.2); ESTIMATED GFR > 60; GLUCOSE 158 mg/dL (70-104); POTASSIUM 4.1 mmol/L (3.5-5.1); SODIUM 128 mmol/L (136-145); TCO2 27 mmol/L (25-35)
[2019-05-03] MEDS: NORVASC PO SCH (08:32)
[2019-05-03] MEDS: DIFLUCAN PO SCH (08:32)
[2019-05-03] MEDS: CARDURA PO SCH (08:32)
[2019-05-03] MEDS: HYDROCHLOROTHIAZIDE PO SCH (08:32)
[2019-05-03] MEDS: ALPHAGAN 0.2% OPHTH SOLN BOTH EYES SCH ×2 (08:33→13:50)
[2019-05-03] MEDS: SANTYL OINT TOP SCH (08:34)
[2019-05-03 08:39] LABS: HEMOGLOBIN A1C 7.4 % (4.8-6.0)
--- NOTE | 2019-05-03 11:19 | DISCHARGE SUMMARY ---
ADMISSION DATE: 05/02/2019 DISCHARGE DATE: FINAL DISCHARGE DIAGNOSES: 1. Left ischemic heel ulcer. 2. Sacral wound. 3. Right plantar heel ulceration. 4. Diabetes mellitus type 2. 5. Coronary artery disease. 6. Hypertension. 7. Benign prostatic hypertrophy. CONSULTATIONS: General Surgery consultation with Dr. Gong. IMAGING STUDIES: 1. Chest x-ray performed on 04/26/2019 showed no acute pathology. 2. Head CT performed on 04/26/2019 revealed mild chronic changes. PROCEDURES: Excision and debridement of skin and soft tissue on the left heel ulceration. HOSPITAL COURSE: Mr. Clifford is an 79-year-old male with a history of multiple medical problems who presented with generalized weakness. Upon further assessment, the patient was noted to have an ischemic ulcer on his left heel. The patient was admitted to the hospitalist service and started on antibiotics and General Surgery was consulted. The patient's blood cultures remained negative throughout the hospitalization. The patient was taken to the OR on 04/28/2019 and underwent excision and debridement of skin and soft tissue of the left heel. The patient did well following the procedure and wound care was maintained throughout the hospitalization. The patient was also noted to have several other areas of concern, so Wound Care was consulted for further assistance. The patient continued to improve clinically and was ultimately cleared for discharge to inpatient rehab on 05/03/2019. DISCHARGE MEDICATIONS: 1. Keflex 500 mg oral twice a day x7 days. 2. Norvasc/atorvastatin 1 tablet oral daily. 3. Cardura 4 mg oral daily. 4. Elavil 25 mg oral at bedtime. 5. Hydrochlorothiazide 25 mg oral daily. 6. Pravastatin 40 mg oral at bedtime. 7. Flomax 0.4 mg oral at bedtime. 8. Humulin 70/30 15 units subcutaneous daily. DISCHARGE DIET: 1800 ADA diet. ACTIVITY: As tolerated. FOLLOWUP INSTRUCTIONS: The patient will need to follow up with Dr. Gong in 2 weeks. cc: Mony Mixon MD
[2019-05-03 11:24] VITALS: BP 124/51
--- NOTE | 2019-05-09 16:39 | ED EKG INTERP ---
This chart was entered by Taty Santoyo Scribe, acting as scribe for Edil Dodd MD. EKG Interpretation - EKG Time of EKG reading by physician:: 17:45 EKG Read and Signed by:: Edil Dodd EKG Interpretation (*Must complete 3 of following elements*): Abnormal (non specific st and t wave abnormality) Rate: 113 Rhythm: sinus tachycardia with freq PVCs [place]: left QRS: PVC's (frequent) Attestation - Physician/ NOEMY Attestation Patient care was provided by Advanced Practice Provider:: Yes Advanced Practice Provider documentation review:: The Mid-level provider documentation, treatment plan and medical decision making was reviewed by the physician who agrees with all treatment and medical decision making by the MLP. The physician spent face to face time with patient:: No Advanced Practice Provider documentation review:: Supervising physician onsite and consulted in the evaluation and care of this patient. The physician did not have a face to face encounter with the patient. This chart was documented by the indicated scribe, (Taty Santoyo Scribe) and accurately reflects the services I performed and decisions made by me, Edil Dodd MD, as attested by the provider's signature.
== END 2019-05-03 18:34 | DRG 264 ==
LOC: P.ED 16:55 → P.MEDSURG 16:55 → SUATTDRO 23:08 → 4N 04-28 13:15 → SUATTDRO 05-02 11:16
PROVIDERS: ATTEND Internal Medicine
CPT/HCPCS: 51702; 70450; 71010; 71045; 80048; 80053; 80104; 80301; 80305; 81001; 82550; 82553; 82948; 83036; 83605; 83735; 84484; 85025; 85027; 85610; 85730; 87040; 87088; 93005; 96360; 96361; 97110; 97163; 97530; 99285; A9270; G0431; G0434; G0477; J0690; J7030; XXXXX